=== PATIENT | male | born 1960 | race Caucasian/White ===

== ENCOUNTER 2020-08-17 08:14 | Day surgery (SDC) | payer OTHER ==
[2020-08-17] MEDS ORDERED: Propofol 200 MG/20 ML SDV ONE (09:03)
[2020-08-17] MEDS ORDERED: Midazolam 1 MG/ML 2 ML SDV ONE (09:03)
[2020-08-17] MEDS ORDERED: fentaNYL 100 MCG/2 ML SDV ONE (09:03)
[2020-08-17] MEDS ORDERED: Dextrose 5%-Lactated Ringers 1,000 ML IV SCH (09:45)
--- NOTE | 2020-09-02 19:25 | OR ---
DATE OF PROCEDURE: 08/17/2020 SURGEON: Dain Silva MD PREOPERATIVE DIAGNOSIS: History of anemia. POSTOPERATIVE DIAGNOSES: History of anemia associated with normal colonoscopic examination. OPERATIVE PROCEDURE: Flexible colonoscopy. ANESTHESIA: IV sedation. INDICATIONS FOR PROCEDURE: This is a 59-year-old male referred for colonoscopy for evaluation of recently identified anemia. Plan is to proceed with colonoscopy with biopsies and/or polypectomy as indicated. Potential risks including bleeding and perforation were discussed, and the patient wishes to proceed. DETAILS OF PROCEDURE: The patient was taken to the operating room, placed in the left lateral decubitus position. IV sedation was administered, after which the digital rectal exam was performed and was unremarkable. The colonoscope was then passed into the rectum with retroflexion revealing uncomplicated hemorrhoidal columns. Scope was then eventually passed to the level of cecum. The prep was quite good. Only a small amount of liquid stool was present. At that level, there were no areas of diverticular disease, no areas of colitis, no polyps or other signs of neoplasia, and no blood or bleeding. Scope was then withdrawn. The above findings reconfirmed, and the procedure then concluded. The plan will be to have the patient follow up with Dr. Mireles in 1 month for followup of the anemia issue. Dain Silva MD /[id number]
== END 2020-08-17 12:10 | disposition home or self-care (01) ==
LOC: JP.SDS 08:14
PROVIDERS: ATTEND Surgery
DX: D64.9 Anemia, unspecified (principal); K64.9 Unspecified hemorrhoids
CPT/HCPCS: 45378; J2250; J2704; J3010; J7121